=== PATIENT | female | born 1945 | race Caucasian/White ===

== ENCOUNTER 2016-09-29 15:38 | Outpatient (CLI) | payer MEDICARE, OTHER | END 2016-09-29 15:39 | disposition home or self-care (01) | DX: R60.0 Localized edema (principal) ==

== ENCOUNTER 2017-02-01 14:09 | Outpatient (CLI) | payer MEDICARE, OTHER ==
--- NOTE | 2017-02-02 10:28 | Mammography Report ---
BILATERAL DIGITAL DIAGNOSTIC MAMMOGRAM: 02/01/2017 Patient has no family history of breast cancer. Patient did have a personal history of breast cancer involving the right breast. Patient had a lumpectomy and then radiation. This was done in February 2013. TECHNIQUE: Craniocaudad and oblique lateral views of each breast were obtained with Hologic full field digital mammography. A mediolateral view of the left breast was done. Also, a coned-down compression craniocaudad and oblique lateral view of the left breast were done. COMPARISON: 12/22/2015, 11/29/2014, 10/22/2013, 07/27/2012. FINDINGS: Breasts are almost entirely composed of fat. Evidence of a prior lumpectomy is noted in the upper-outer quadrant of the right breast. Skin retraction and scarring is noted in association with multiple surgical clips. No significant cluster of calcification is seen in the breasts. The left breast shows a suggestion of an asymmetrical density in its upper-outer quadrant. This measures 1.3 cm. Finding was not present on preceding exam from 12/22/2015. It may have been present in a smaller form on prior mammograms dated 11/29/2014, 10/22/2013 and 07/27/2012. It is still noted on today's exam on the coned-down compression craniocaudad view. Finding may represent a benign summation shadow, but recommend a left breast ultrasound to exclude a mass in the upper-outer quadrant of the left breast at the 2 o'clock position, 5 cm superolateral to the left nipple. IMPRESSION: A 1.3 CM ASYMMETRICAL DENSITY IS NOTED AT THE 2 O'CLOCK POSITION OF THE LEFT BREAST. THIS FINDING APPEARS LARGER ON TODAY'S EXAM THAN PRECEDING EXAM. IT IS EQUIVOCAL FOR A SMALL MASS. RECOMMEND LEFT BREAST ULTRASOUND FOR FURTHER EVALUATION. PRIOR LUMPECTOMY IS ONCE AGAIN NOTED IN THE UPPER-OUTER QUADRANT OF THE RIGHT BREAST WITH SCARRING, MILD SKIN RETRACTION, AND SURGICAL CLIPS. BIRADS CATEGORY: 0, INCOMPLETE. NEEDS ADDITIONAL IMAGING EVALUATION. LEFT BREAST ULTRASOUND IS INDICATED. COMMENT: Patient was informed about the necessity to obtain a left breast ultrasound for further evaluation. Arrangements are presently being made to obtain this ultrasound. It is tentatively scheduled for 02/02/2017 at 3:15 p.m. JOB #: [id number] [id number] JOB #: [id number] SHAKEEL
== END 2017-02-01 14:10 | disposition home or self-care (01) ==
LOC: DI 14:09
PROVIDERS: ATTEND Internal Medicine Hematology & Oncology
DX: D05.11 Intraductal carcinoma in situ of right breast (principal)
CPT/HCPCS: 76642; 77066

== ENCOUNTER 2017-02-02 11:40 | Outpatient (CLI) | payer MEDICARE, OTHER ==
--- NOTE | 2017-02-02 17:38 | Ultrasound Report ---
REVISED: THIS REPORT WAS ORIGINALLY SIGNED ON 02/03/2017 @ 2045. REPORT MOVED TO CORRECT ACCOUNT ON 02/18/2017. LEFT BREAST ULTRASOUND: 02/02/2017 CLINICAL HISTORY: This is a 71-year-old female who had an asymmetrical density measuring 1.5 cm in the upper half of the left breast in the 2 o'clock position on recent screening mammogram. Patient had a prior right lumpectomy for breast cancer. TECHNIQUE: Real-time scanning was performed with education courses sales representative static images obtained. FINDINGS: Left breast ultrasound was done both by the technologist and Dr. Dumont. They demonstrate an isolated island of tissue in the upper outer quadrant of the left breast that varies from adjacent tissue. It measures 1.5 x 0.5 cm. It correlates in size and location to the area of concern on patient' s screening mammogram. The appearance of this finding is consistent with a focal island of glandular hyperplasia rather than a mass. Recommend, however, that this area be followed carefully with a repeat left breast ultrasound in 6 months to further confirm this benign etiology. This area lies 3 cm superolateral to the left nipple. IMPRESSION: A PROBABLE FOCAL AREA OF BENIGN GLANDULAR HYPERPLASIA IS NOTED IN THE 2 O'CLOCK POSITION OF THE LEFT BREAST 3 CM FROM THE LEFT NIPPLE. THIS FINDING CORRELATES IN SIZE AND LOCATION TO THE AREA OF CONCERN ON PATIENT'S RECENT SCREENING MAMMOGRAM. RECOMMEND IT BE FOLLOWED WITH A REPEAT LEFT BREAST ULTRASOUND IN 6 MONTHS TO FURTHER CONFIRM ITS BENIGN ETIOLOGY. BI-RADS 3. Probable benign finding. Short interval imaging study recommended. Patient should return for a 6-month followup left breast ultrasound. COMMENT: Patient was informed of the probably benign finding by Dr. Dumont today. She was encouraged to return for repeat left breast ultrasound in 6 months for further evaluation. JOB #: [id number] [id number] JOB #: [id number] SHAKEEL
== END 2017-02-02 11:41 | disposition home or self-care (01) ==
LOC: DI 11:40
PROVIDERS: ATTEND Internal Medicine Hematology & Oncology
DX: Z53.9 Procedure and treatment not carried out, unspecified reason (principal)
CPT/HCPCS: 76642

== ENCOUNTER 2017-08-18 12:35 | Outpatient (CLI) | payer MEDICARE, OTHER ==
--- NOTE | 2017-08-19 08:59 | Ultrasound Report ---
DATE OF SERVICE: 08/18/2017 LEFT BREAST ULTRASOUND: 08/18/2017 COMPARISON EXAM: Left breast ultrasound 02/02/2017 and mammograms 02/01/2017 and 12/22/2015. INDICATION: Followup BI-RADS 3 lesion of the left breast. Six month followup. TECHNIQUE: Sonographic evaluation of the left breast was performed. FINDINGS: Left breast 2 o'clock position, 3 cm from the nipple, in the same location as before, again seen is a hypoechoic area. The focus now shows more angular margins and more intense posterior shadowing, concerning findings. In correlation with previous examinations, the finding has become more conspicuous and more suspicious. IMPRESSION: BI-RADS category 4A. Suspicious abnormality. Biopsy should be considered. The patient will be scheduled for ultrasound-guided biopsy in our clinic at the earliest available opportunity. These findings were discussed in detail with the patient at the time of evaluation in our clinic 08/18/2017 at approximately 2 p.m. and she expressed understanding. TD: 08/18/2017 20:36 SHAKEEL
== END 2017-08-18 12:36 | disposition home or self-care (01) ==
LOC: DI 12:35
PROVIDERS: ATTEND Internal Medicine
DX: N63.21 Unspecified lump in the left breast, upper outer quadrant (principal)
CPT/HCPCS: 76642

== ENCOUNTER 2017-08-29 12:11 | Outpatient (CLI) | payer MEDICARE, OTHER ==
--- NOTE | 2017-08-29 16:35 | Ultrasound Report ---
DATE OF SERVICE: 08/29/2017 ULTRASOUND-GUIDED CORE NEEDLE BIOPSY LEFT BREAST: 08/29/2017 CLINICAL INDICATION: Hypoechoic focus with shadowing left breast 2 o'clock position 3 cm from the nipple. FOLLOWING: Informed consent was obtained. Using standard aseptic technique, both 1% buffered lidocaine and Sensorcaine were injected into the left breast for local anesthesia. A small leo was made in the skin with a #11 blade. A 12-gauge Celero vacuum assistive device was used to obtain four specimens. A Celero marker was placed into the biopsy cavity under ultrasound guidance. The patient was taken to a separate mammography machine and a 2-view digital mammogram was performed, documenting the marker in the expected location and no significant postbiopsy hematoma. The wound was dressed and ice applied. The patient was observed for approximately 15 minutes, then was discharged from [facility] following instructions on wound care and obtaining biopsy results. The tissue was sent for histologic analysis. IMPRESSION: ULTRASOUND-GUIDED BIOPSY OF THE LEFT BREAST. An addendum will be made to this report when the pathology is reviewed to establish concordance. TD: 08/29/2017 17:28
[2017-08-29] MEDS ORDERED: BUFFERED LIDOCAINE 10 ML SYRINGE IU ONE (16:40)
[2017-08-29] MEDS ORDERED: BUPIVACAINE 0.5% PF 10 ML VIAL IM ONE (16:40)
== END 2017-08-29 12:12 | disposition home or self-care (01) ==
LOC: DI 12:11
PROVIDERS: ATTEND Internal Medicine
DX: R92.8 Other abnormal and inconclusive findings on diagnostic imaging of breast (principal); N63.21 Unspecified lump in the left breast, upper outer quadrant
CPT/HCPCS: 19083; 88305

== ENCOUNTER 2017-09-23 07:06 | Outpatient (CLI) | payer MEDICARE, OTHER ==
[2017-09-23] MEDS ORDERED: IOPAMIDOL-300 50 ML VIAL ONE (08:03)
[2017-09-23] MEDS ORDERED: IOPAMIDOL-300 100 ML VIAL ONE (08:04)
[2017-09-23] MEDS ORDERED: IOPAMIDOL-300 50 ML VIAL PO ONE (09:41)
[2017-09-23] MEDS ORDERED: IOPAMIDOL-300 100 ML VIAL IVP ONE (09:42)
--- NOTE | 2017-09-23 13:31 | CT Report ---
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 TECHNIQUE: Axial CT images of the chest were obtained with 100 mL Isovue-[address] is available for comparison. FINDINGS: The heart and great vessels demonstrate mild atherosclerotic calcifications. No hilar or mediastinal lymphadenopathy is present. The lungs are clear. No effusion or pneumothorax is present. Osseous structures demonstrate degenerative changes. IMPRESSION: NORMAL CT OF THE CHEST WITH CONTRAST. NO EVIDENCE OF METASTATIC DISEASE. In accordance with CT protocol optimization, one or more of the following dose reduction techniques were utilized for this exam: automated exposure control, adjustment of mA and/or KV based on patient size, or use of iterative reconstructive technique. TD: 09/23/2017 13:27
--- NOTE | 2017-09-23 13:32 | CT Report ---
CT OF THE ABDOMEN AND PELVIS WITH CONTRAST: 09/23/2017 CLINICAL INDICATION: Breast cancer, leg edema. TECHNIQUE: Axial CT images of the abdomen and pelvis were obtained with 100 mL Isovue 300 intravenously as well as oral contrast. No previous CT is available for comparison. FINDINGS: ABDOMEN: The liver demonstrates diffuse decrease in attenuation, compatible with fatty infiltration. No focal lesion is seen. The spleen, pancreas, left kidney and adrenal glands are unremarkable. The right kidney demonstrates a 2 mm nonobstructing calculus in the upper pole. No hydronephrosis or hydroureter is seen. The gallbladder is not dilated. No bowel dilatation, free gas, or free fluid is present. No abdominal adenopathy is seen. PELVIS: Sigmoid diverticulosis is present, without CT evidence of diverticulitis. The uterus demonstrates a large amount of fluid and hyperdense material within the lumen, measuring up to 3 cm in thickness, suspicious for endometrial carcinoma. Correlation with endometrial biopsy is recommended. No free fluid or pelvic adenopathy is appreciated. The appendix is seen in the right lower quadrant, and is normal in caliber. Osseous structures demonstrate degenerative changes. IMPRESSION: HETEROGENEOUS MATERIAL WITHIN THE ENDOMETRIAL CANAL, SUSPICIOUS FOR ENDOMETRIAL CARCINOMA. CORRELATION WITH ENDOMETRIAL BIOPSY IS RECOMMENDED. NO EVIDENCE OF ADENOPATHY OR ASCITES. In accordance with CT protocol optimization, one or more of the following dose reduction techniques were utilized for this exam: automated exposure control, adjustment of mA and/or KV based on patient size, or use of iterative reconstructive technique. TD: 09/23/2017 13:31
== END 2017-09-23 07:07 | disposition home or self-care (01) ==
LOC: DI 07:06
PROVIDERS: ATTEND Physician Assistant Medical
DX: D05.90 Unspecified type of carcinoma in situ of unspecified breast (principal); R60.0 Localized edema; R93.8 Abnormal findings on diagnostic imaging of other specified body structures
CPT/HCPCS: 71260; 74177; Q9967

== ENCOUNTER 2017-10-05 09:24 | Day surgery (SDC) | payer MEDICARE, OTHER ==
--- NOTE | 2017-10-04 13:22 | PREOP HISTORY & PHYSICAL ---
ANTICIPATED DATE OF ADMISSION: 10/05/2017 IDENTIFICATION: A 72-year-old, G3, P-3-0-0-3. HISTORY OF PRESENT ILLNESS: The patient is a patient of Puja Byrnes, as well as Dr. Graciela Minaya. The patient, unfortunately, has breast cancer and was placed on tamoxifen. Due to swelling in her right leg, a CT of the abdomen and pelvis was obtained on 09/23/2017. This revealed an incidental finding of an endometrial thickness of 3 cm. There was no free fluid or pelvic adenopathy. The uterus measures approximately 13.1 x 6.2 cm with an endometrial lining thickness of 2.97 mm. The patient has denied any postmenopausal bleeding. She denies any pain in the uterine area. I saw the patient on 09/29/2017 and performed a Pap smear which came back as negative, as well as a screening for high risk human papillomavirus. Two large polyps were seen protruding from the external cervical os. These polyps were obtained and have come back as benign endocervical polyps. There was an attempt for an endometrial biopsy, but unfortunately there was insufficient evaluation for endometrium. There were fragments of endocervical mucosa with acute and chronic inflammation and reactive changes. I discussed with the patient my recommendation to do a definitive biopsy. I recommended to her that we proceed to an outpatient hysteroscopy, dilatation and curettage. The major risk for this procedure is uterine perforation. However, we should be able to get a definitive diagnosis with this procedure. I discussed with the patient my recommendations and its risks, benefits, alternatives, indications, expectations of surgery. After all of the patient's questions were answered to her satisfaction, she verbalized her desire to proceed with surgery. Consent forms have been signed. The patient currently is doing well. Denies any nausea, vomiting, fevers, chills, abdominal pain or vaginal bleeding. PAST MEDICAL HISTORY 1. Right breast cancer. 2. Diverticulosis, currently asymptomatic. 3. Obesity. 4. Three term spontaneous vaginal deliveries, with the largest baby weighing 7.19 pounds. She has had a girl, a boy, and a girl. PAST SURGICAL HISTORY: Right breast biopsy. ALLERGIES 1. TAPE. 2. LASIX, IN WHICH HER SKIN TEARS. MEDICATIONS: Tamoxifen 20 mg 1 tab p.o. daily. SOCIAL HISTORY: She denies any tobacco, alcohol or illicit drug use. 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 Her oldest child will be 48 years old. Her is Lex, who is a former [employer] and also worked as a insurance claims specialist. All 3 of her children are healthy. Her PCP, again, is Puja Byrnes PA-C; and medical oncologist is Graciela Minaya. PAST GYNECOLOGY HISTORY: She denies any abnormal Pap smears or sexually transmitted diseases. She was given hormone replacement when she went through menopause at age 47 or 48, but forgot to take them. FAMILY HISTORY: Paternal aunt had a questionable history of ovarian cancer. REVIEW OF SYSTEMS: Negative, unless otherwise stated. OBJECTIVE VITAL SIGNS: Weight is 205 pounds, height is 62 inches, BMI is 37.5, blood pressure 148/90. GENERAL: The patient is a well-developed, well-nourished, female, in no apparent distress. She is alert and oriented x3. The patient is very pleasant, easy to speak to. HEENT: Within normal limits. She does wear glasses. CARDIOVASCULAR: Regular. No murmurs, rubs. PULMONARY: Lungs are clear to auscultation bilaterally. ABDOMEN: Soft, nontender. No masses, rebound, rigidity, or guarding. ASSESSMENT 1. A 72-year-old G3, P-3-0-0-3. 2. Thickened endometrial lining. 3. Currently on year 4 of a 5 year endocrine prophylaxis of breast cancer. PLAN 1. Proceed to a scheduled hysteroscopy, dilatation and curettage on 10/05/2017. 2. Patient to take [id number] analgesics for pain. 3. Patient to see me in 2 weeks at [facility] for a postop visit, as well as discuss test results. cc: Puja Byrnes PA-C TD: 10/04/2017 11:15 [facility]ENTER[facility]
[~2017-10-05 09:24] MED LIST: miSOPROStol 200 MCG TABLET ONE
[2017-10-05] MEDS ORDERED: LACTATED RINGERS 1,000 ML IV ONE (09:54)
[2017-10-05] MEDS ORDERED: LIDOCAINE-MPF 2% 5 ML VIAL IM ONE (11:09)
[2017-10-05] MEDS ORDERED: ONDANSETRON 4 MG/2 ML VIAL IVP ONE (11:09)
[2017-10-05] MEDS ORDERED: PROPOFOL 1000 MG/100 ML IV ONE (11:09)
[2017-10-05] MEDS ORDERED: KETOROLAC 30 MG/ML VIAL IVP ONE (11:09)
[2017-10-05] MEDS ORDERED: SUCCINYLCHOLINE 200 MG/10 ML VIAL IVP ONE (11:09)
[2017-10-05] MEDS ORDERED: fentaNYL 100 MCG/2 ML VIAL IVP ONE (11:09)
--- NOTE | 2017-10-05 11:44 | OPERATIVE REPORT ---
Operative Report - Other Other Information/Narrative: Date of Operation: 10/05/2017 Surgeon: Claudine Cardenas DO FACOG Robotics Specialist: Kaiden Valderrama MD FACOG Liquefier: Dominique Bella CRNA Anesthesia: GET Pre-op Dx: 1. 72 yo 2. Endometrial hyperplasia 3. On year 4 of tamoxifen Post-op Dx: 1. 72 yo 2. Endometrial polyps and leiomyoma 3. On year 4 of tamoxifen Procedure: Hysteroscopy, dilation and curettage Findings: Endometrial polyps and leiomyomata seen. No dayanara cancer. Specimens: Endometrial cuttings EBL: 5 mL Complications: None Dictation: [id number]
[2017-10-05 13:14] VITALS: BP 152/86
--- NOTE | 2017-10-06 09:04 | OPERATIVE REPORT ---
DATE OF OPERATION: 10/05/2017 PREOPERATIVE DIAGNOSES 1. A 72-year-old G3, P-3-0-0-3. 2. Endometrial hyperplasia. 3. Year 4 of tamoxifen. POSTOPERATIVE DIAGNOSES 1. A 72-year-old G3, P-3-0-0-3. 2. Endometrial polyps and leiomyoma. 3. Year 4 of tamoxifen. PROCEDURE: Hysteroscopy, dilatation and curettage. SURGEON: Claudine Cardenas DO, FACOG FEDERAL MEDIATOR: Kaiden Valderrama MD, FACOG SPA MANAGER: Dominique Bella CRNA ANESTHESIA: General endotracheal tube. FINDINGS: Endometrial polyps and leiomyoma seen. No dayanara carcinoma. SPECIMENS: Endometrial cuttings. ESTIMATED BLOOD LOSS: 5 mL COMPLICATIONS: None. BRIEF HISTORY: This is a patient of JUNG Byrnes. Unfortunately, she has a history of breast cancer. She is currently in remission and has been on tamoxifen for endocrine prophylaxis since recurrence of breast cancer. She had a complaint of right leg swelling, and a CT of the abdomen and pelvis was performed. This found an incidental finding of a thickened endometrium of 3 cm. She was seen in the office, and a Pap smear returned as within normal limits and 2 polyps were excised. These polyps were found to be benign as well. I could not, however, obtain a satisfactory endometrial specimen. Therefore, I recommend to her that we proceed to a hysteroscopy, dilatation and curettage in the outpatient setting. Discussed with her my recommendations to proceed with a hysteroscopy, dilatation and curettage. I discussed with her the risk of hemorrhage, infection, and inadvertent laceration, cauterization, or most likely a uterine perforation. After all questions were answered to her satisfaction, she verbalized desire to proceed with surgery. Consent forms have been signed. OPERATION IN DETAIL: The patient was identified and consented, taken to the operating room where IV access are in place. She was then given sequential compression devices, which were placed on her lower extremities and turned on. Antibiotics were not indicated in this case. She was then attempted to be given LMA anesthesia, but this was not satisfactory. She was then converted to general endotracheal tube anesthesia as per Dominique Bella. A timeout was performed which correctly identified the patient, site of the procedure, and procedure itself. The patient was then prepped and draped in normal sterile fashion in the lithotomy position using Kd stirrups. Her bladder was drained prior to the procedure. She was given Cytotec 800 mcg in the Ambulatory Surgery area. Her cervix was identified and then dilated to a 6-Greek. A MyoSure hysteroscopic system was then placed into the uterus and normal saline solution was used as a distending medium. Upon visualization of the endometrium, there were significant amounts of polyps and fibroids. With the MyoSure LITE, the fibroids and polyps were then excised from the endometrium. At this point in time, the operation had been completed. All instruments were removed out of the vagina and hemostasis was noted. She was taken to the recovery room in stable condition. She will be discharged home later today after postoperative criteria are met. cc: MD Puja Arguello PA-C TD: 10/05/2017 12:13 MTDJovan
== END 2017-10-05 09:25 | disposition home or self-care (01) ==
LOC: SDS 09:24
PROVIDERS: ATTEND Obstetrics & Gynecology
PROC: 0UDB8ZX Extraction of Endometrium, Via Natural or Artificial Opening Endoscopic, Diagnostic (ICD-10-PCS; 2017-10-05)
PROC: 0UB98ZX Excision of Uterus, Via Natural or Artificial Opening Endoscopic, Diagnostic (ICD-10-PCS; principal; 2017-10-05 10:30)
DX: N85.00 Endometrial hyperplasia, unspecified (principal); Z85.3 Personal history of malignant neoplasm of breast; Z79.810 Long term (current) use of selective estrogen receptor modulators (SERMs)
CPT/HCPCS: 58558; A9270; J7120

== ENCOUNTER 2018-04-21 10:52 | Outpatient (CLI) | payer MEDICARE, OTHER ==
--- NOTE | 2018-04-21 13:18 | Mammography Report ---
Reason: R BREAST CANCER Procedure Date: 04/21/2018 Accession Number: [id number] / [id number] Procedure: ROBEL - Diagnostic Dig Bilat CPT Code: FULL RESULT: EXAM: Diagnostic Dig Bilat DATE: 04/21/2018 11:20 AM CLINICAL HISTORY: Personal history of right breast cancer. Ultrasound core biopsy left breast with benign results August 2017. TECHNIQUE: Bilateral digital CC and MLO projections with Scott symphysis. COMPARISON: 08/29/2017, 02/01/2017, 12/22/2015, 06/25/2015, 11/29/2014 and 05/06/2014. FINDINGS: There are scattered fibroglandular densities. Stable right breast upper outer quadrant architectural distortion and surgical clips postlumpectomy. Stable left breast ultrasound-guided core biopsy clip upper outer quadrant. No new dominant mass, architectural distortion, skin thickening, or suspicious clustered microcalcifications. IMPRESSION: Benign findings RECOMMENDATION: Follow-up bilateral mammography in 12 months. BIRADS CATEGORY 2: Benign findings STANDARD QUALIFYING STATEMENTS: 1. This examination was reviewed with the aid of Computer-Aided Detection (CAD). 2. A negative or benign imaging report should not delay biopsy if clinically suspicious findings are present. Consider surgical consultation if warrented. More than 5% of cancers are not identified by imaging. 3. Dense breasts may obscure an underlying neoplasm.
== END 2018-04-21 10:53 | disposition home or self-care (01) ==
LOC: DI 10:52
PROVIDERS: ATTEND Internal Medicine
DX: D05.11 Intraductal carcinoma in situ of right breast (principal)
CPT/HCPCS: 77066

== ENCOUNTER 2018-08-16 08:21 | Outpatient (CLI) | payer MEDICARE, OTHER ==
[2018-08-16 14:26] LABS: CHOL/HDL RATIO 4.2 (<4.4); CHOLESTEROL 229 mg/dL; HDL CHOLESTEROL 55 mg/dL; LDL CHOLESTEROL,CALCULATED 140 mg/dL; LDL/HDL RATIO 2.5 (<4.4); VLDL CHOLESTEROL 34 mg/dL
== END 2018-08-16 23:59 | disposition home or self-care (01) ==
LOC: LAB.WCP 08:21
PROVIDERS: ATTEND Physician Assistant Medical
DX: E78.5 Hyperlipidemia, unspecified (principal)
CPT/HCPCS: 36415; 80061; 83721

== ENCOUNTER 2018-11-03 13:26 | Outpatient (CLI) | payer MEDICARE, OTHER ==
--- NOTE | 2018-11-03 15:31 | CT Report ---
Reason: FLANK PAIN,RIGHT Procedure Date: 11/03/2018 Accession Number: [id number] / [id number] Procedure: CT - Abdomen/Pelvis WO CPT Code: FULL RESULT: EXAM: CT ABDOMEN AND PELVIS (CT KUB) EXAM DATE: 11/03/2018 01:39 PM. CLINICAL HISTORY: FLANK PAIN,RIGHT. COMPARISONS: ABDOMEN/PELVIS W/ 09/23/2017 8:57 AM. TECHNIQUE: Routine axial helical CT imaging was performed through the abdomen and pelvis without IV contrast. Reconstructions: Coronal and sagittal. In accordance with CT protocol optimization, one or more of the following dose reduction techniques were utilized for this exam: automated exposure control, adjustment of mA and/or KV based on patient size, or use of iterative reconstructive technique. FINDINGS: Lung Bases: Unremarkable. Right Kidney/Ureter: There is a 5 mm upper pole renal stone and a 2-3 mm lower pole renal stone. Stable mildly prominent extrarenal pelvis. No evidence of ureterolithiasis or bladder stone. 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 No appreciable left-sided nephrolithiasis. Stable parapelvic cyst formation. No evidence of ureterolithiasis. Other Solid Organs: Noncontrast images of the solid organs are grossly unremarkable. Gallbladder/Bile Ducts: Unremarkable. Peritoneal Cavity: There is colonic diverticulosis, but no CT evidence of diverticulitis. Appendix and small bowel appear normal. Pelvic Organs: No bladder stones or wall thickening. The uterus is borderline prominent in size for patient age measuring 10 x 5 x 5.5 cm diminished in size and volume compared to the prior when it measured 13 x 6 x 7 cm. Previously described heterogeneous material within the endometrial canal is no longer appreciated. Vasculature: Unremarkable. Other: None. IMPRESSION: 1. Nonobstructive right-sided nephrolithiasis as described. No hydronephrosis or ureterolithiasis. 2. Diverticulosis without CT evidence of diverticulitis. 3. Uterus borderline increased in size/volume for age, but decreased compared to the prior exam. RADIA
== END 2018-11-03 13:27 | disposition home or self-care (01) ==
LOC: DI 13:26
PROVIDERS: ATTEND Physician Assistant Medical
DX: R10.9 Unspecified abdominal pain (principal); N20.0 Calculus of kidney; K57.30 Diverticulosis of large intestine without perforation or abscess without bleeding
CPT/HCPCS: 74176

== ENCOUNTER 2019-02-02 01:19 | Outpatient (CLI) | payer MEDICARE, OTHER | END 2019-02-02 01:20 | disposition critical access hospital (66) | LOC: EMS 01:19 | PROVIDERS: ATTEND Surgery | DX: R10.10 Upper abdominal pain, unspecified (principal); R11.2 Nausea with vomiting, unspecified | CPT/HCPCS: A0425; A0427 ==

== ENCOUNTER 2019-02-02 01:39 | Emergency (ER) | payer MEDICARE, OTHER ==
--- NOTE | 2019-02-02 01:41 | ED Physician Documentation ---
PD HPI ABD PAIN - Stated complaint Stated Complaint: ABD PAIN - History obtained from History obtained from: Patient - History of Present Illness Timing - onset: Enter time (22:15) Timing - duration: Hours Timing - details: Abrupt onset Pain level now: 8 Quality: Pain Location: RUQ Radiation: Lower back Improved by: Meds (improved with fentanyl given en route (50micrograms with repeat dose, total of 100 micrograms)) Worsened by: Other (no exacerbating factors) Associated symptoms: Nausea, Vomiting. No: Fever, Diarrhea, Constipation Similar symptoms before: No diagnosis (similar but milder and self-limited episodes over the past few months) Recently seen: Not recently seen Review of Systems Constitutional: reports: Sweats. denies: Fever, Chills Cardiac: reports: Reviewed and negative Respiratory: reports: Reviewed and negative GI: reports: Abdominal Pain, Nausea, Vomiting. denies: Constipation, Diarrhea : denies: Dysuria, Frequency, Hematuria Musculoskeletal: reports: Back pain (abdominal pain radiating to back) PD PAST MEDICAL HISTORY - Past Medical History Past Medical History: Yes [employer]: Breast cancer - Past Surgical History Past Surgical History: No - Present Medications Home Medications: Ambulatory Orders Medication Instructions Recorded Confirmed Multivitamin [Multivitamins] 1 each PO DAILY 04/10/13 05/03/18 Tamoxifen 20 mg PO DAILY 07/18/13 05/03/18 Ondansetron Odt [Zofran] 4 mg TL Q6H PRN #10 tablet 02/02/19 Oxycodone HCl/Acetaminophen 1 - 2 each PO Q6H PRN #14 tablet 02/02/19 [Percocet 5-325 mg Tablet] - Allergies Allergies/Adverse Reactions: Allergies Allergy/AdvReac Type Severity Reaction Status Date / Time adhesive AdvReac Rash Verified 02/02/19 01:46 - Living Situation Living Situation: reports: With spouse/s.o. Living Arrangement: reports: At home PD ED PE NORMAL - Vitals Vital signs reviewed: Yes - General General: Alert and oriented X 3, Well developed/nourished, Other (obvious severe painful distress) - HEENT HEENT: Moist mucous membranes - Cardiac Cardiac: RRR, No murmur - Respiratory Respiratory: No respiratory distress, Clear bilaterally - Abdomen Abdomen: Soft, Non distended, Other (mild RUQ and epigastric tenderness without rebound or guarding) - Back Back: No CVA TTP - Derm Derm: Normal color, Warm and dry, No rash Results - Vitals Vitals: Vital Signs - 24 hr 02/02/19 02/02/19 02/02/19 01:42 01:51 02:10 Temperature 37.2 C Heart Rate 85 85 71 Respiratory 20 22 14 Rate Blood Pressure 124/53 L O2 Saturation 96 97 87 L 02/02/19 02/02/19 02/02/19 02:13 02:27 02:45 Temperature Heart Rate 80 66 86 Respiratory 15 14 15 Rate Blood Pressure 156/95 H 153/90 H O2 Saturation 96 99 98 02/02/19 02/02/19 02/02/19 03:12 04:30 04:35 Temperature Heart Rate 94 Respiratory 16 17 Rate Blood Pressure 138/69 H O2 Saturation 98 Oxygen O2 Source Room air Oxygen Flow Rate 2 - Labs Labs: Laboratory Tests 02/02/19 02/02/19 02/02/19 01:45 01:45 01:45 WBC 8.3 RBC 3.98 L Hgb 12.2 Hct 38.0 MCV 95.5 MCH 30.7 MCHC 32.1 RDW 13.2 Plt Count 209 MPV 10.0 Neut # (Auto) 6.1 Lymph # (Auto) 1.6 [place] # (Auto) 0.6 Eos # (Auto) 0.0 Baso # (Auto) 0.0 Absolute Nucleated RBC 0.00 Nucleated RBC % 0.0 Sodium 139 Potassium 4.2 Chloride 104 Carbon Dioxide 24 Anion Gap 11.0 BUN 20 Creatinine 1.1 H Estimated GFR (MDRD) 49 L Glucose 133 H Calcium 9.5 Total Bilirubin 0.6 AST 22 ALT 23 Alkaline Phosphatase 83 Troponin I < 0.04 Total Protein 6.8 Albumin 3.9 Globulin 2.9 Albumin/Globulin Ratio 1.3 Lipase 29 - Rads (name of study) RUQ US Radiology: Prelim report reviewed, See rad report PD MEDICAL DECISION MAKING - ED course Complexity details: reviewed results, re-evaluated patient, considered differential, d/w patient ED course: good pain relief after single dose of IV dilaudid and remained comfortable for remainder of ED stay. Departure - Departure Disposition: 01 Home, Self Care Clinical Impression: Biliary colic Condition: Good Health Concerns: abdominal pain Plan of Treatment: prescription analgesic, follow up with general surgery, return to emergency department if worse Care Goals: resolution of pain and prevention of further episodes Assessment: see diagnosis Instructions: ED Gallstone W Biliary Colic Follow-Up: Gerson Mckinnon MD [Provider Admit Priv/Credential] - (Call this morning to arrange for next available appointment) Prescriptions: Ondansetron Odt [Zofran] 4 mg TL Q6H PRN #10 tablet PRN Reason: Nausea / Vomiting Oxycodone HCl/Acetaminophen [Percocet 5-325 mg Tablet] 1 - 2 each PO Q6H PRN #14 tablet PRN Reason: pain Discharge Date/Time: 02/02/19 04:45
[2019-02-02] MEDS ORDERED: HYDROmorphone 1 MG/ML CARPUJECT IVP STA (01:53)
[2019-02-02] MEDS ORDERED: SODIUM CHLORIDE 0.9% 1,000 ML IV STA (01:57)
[2019-02-02 02:04] LABS: BASOPHILS % (AUTO) 0.4 %; EOSINOPHILS % (AUTO) 0.4 %; HGB - HEMOGLOBIN 12.2 g/dL (12.0-16.0); LYMPHOCYTES # (AUTO) 1.6 10^3/uL (1.5-3.5); LYMPHOCYTES % (AUTO) 19.3 %; MEAN CORPUSCULAR HEMOGLOBIN 30.7 pg (27.0-31.0); MEAN CORPUSCULAR HGB CONC 32.1 g/dL (32.0-36.0); MEAN CORPUSCULAR VOLUME 95.5 fL (81.0-99.0); MONOCYTES # (AUTO) 0.6 10^3/uL (0.0-1.0); MONOCYTES % (AUTO) 6.7 %; NEUTROPHILS # (AUTO) 6.1 10^3/uL (1.5-6.6); NEUTROPHILS % (AUTO) 72.8 %; PLT - PLATELET COUNT 209 10^3/uL (130-450); RED BLOOD COUNT 3.98 10^6/uL (4.20-5.40); RED CELL DISTRIBUTION WIDTH 13.2 % (12.0-15.0); WHITE BLOOD COUNT 8.3 x10^3/uL (4.8-10.8)
[2019-02-02 02:13] LABS: ALBUMIN 3.9 g/dL (3.2-5.5); ALBUMIN/GLOBULIN RATIO 1.3 (1.0-2.2); BILIRUBIN,TOTAL 0.6 mg/dL (0.2-1.0); CALCIUM 9.5 mg/dL (8.5-10.3); CREATININE 1.1 mg/dL (0.4-1.0); TOTAL PROTEIN 6.8 g/dL (6.7-8.2)
[2019-02-02 03:12] VITALS: BP 138/69
--- NOTE | 2019-02-02 03:46 | Ultrasound Report ---
Reason: abd. pain Procedure Date: 02/02/2019 Accession Number: [id number] / [id number] Procedure: US - Abdomen Limited CPT Code: FULL RESULT: EXAM: ABDOMEN ULTRASOUND LIMITED, RUQ EXAM DATE: 02/02/2019 03:10 AM. CLINICAL HISTORY: Abdominal pain. COMPARISON: ABDOMEN/PELVIS W/O 11/03/2018 1:35 PM. TECHNIQUE: Real-time scanning was performed with static images obtained. FINDINGS: Liver: Echotexture within normal limits without suspicious abnormality seen. Main portal vein flow: Hepatopetal. Gallbladder: Gallstone lodged in the gallbladder neck with borderline wall thickening but without pericholecystic fluid. Patient reportedly medicated. Biliary System: CBD measures 4 mm. No intrahepatic or extrahepatic ductal dilatation. Other: No right hydronephrosis with small extrarenal pelvis noted. Patient has a small nonobstructing right renal stone. IMPRESSION: Cholelithiasis and borderline wall thickening but without definite acute cholecystitis. If clinical situation remains equivocal, HIDA scan can be considered. RADIA
[2019-02-02] MEDS ORDERED: oxyCODONE/ACET 5/325 Prepack 4 PO STA (04:14)
== END 2019-02-02 04:45 | disposition home or self-care (01) ==
LOC: EDUNIT# → ED 01:39
DX: K80.20 Calculus of gallbladder without cholecystitis without obstruction (principal)
CPT/HCPCS: 36415; 76705; 80053; 83690; 84484; 85025; 93005; 96361; 96374; 99284; J1170

== ENCOUNTER 2019-02-16 11:07 | Day surgery (SDC) | payer MEDICARE, OTHER ==
[~2019-02-16 11:07] MED LIST changes: +BUPIVACAINE 0.5% PF 10 ML VIAL ONE; +BUPIVACAINE 0.5% PF 30 ML VIAL INFIL ONE; +CEFAZOLIN SODIUM IN 0.9 % NACL 2 GM/100 ML BAG IV ONE; -miSOPROStol 200 MCG TABLET ONE
--- NOTE | 2019-02-16 11:24 | ANESTHESIA ---
Pre-Anesthesia VS, & Labs - Diagnosis syptomatic cholecystitis - Procedure laparoscopic cholecystectomy Vital Signs: Temp Pulse Resp BP Pulse Ox 36.5 C 82 18 170/98 H 98 02/16/19 11:10 02/16/19 11:10 02/16/19 11:10 02/16/19 11:10 02/16/19 11:10 Height 5 ft 2 in Weight (kg) 92.1 kg Body Mass Index 39.2 - NPO >8 hours - Is Patient ?: Not Applicable Home Medications and Allergies Home Medications: Ambulatory Orders Ibuprofen [Motrin] 400 mg PO Q6H PRN 02/08/19 Ibuprofen [Motrin] 400 mg PO Q6H PRN 02/08/19 Allergies/Adverse Reactions: Allergies Allergy/AdvReac Type Severity Reaction Status Date / Time adhesive AdvReac skin tears Verified 02/08/19 10:45 Anes History & Medical History - Anesthetic History Anesthesia Complications: reports: No previous complications - Medical History Cardiovascular: reports: None Pulmonary: reports: Pneumonia Gastrointestinal: reports: Cholelithiasis Urinary: reports: Incontinence, Kidney stones Neuro: reports: None Musculoskeletal: reports: Osteoarthritis Endocrine/Autoimmune: reports: None Blood Disorders: reports: None Skin: reports: None Smoking Status: Never smoker - Surgical History General: Colonoscopy Gynecologic: Dilation and currettage Exam General: Alert Dental: WNL Mouth Opening: Greater than 4 Fingerbreadths Mallampati classification: II Thyromental Distance: greater than 6 cm Respiratory: Lungs clear Cardiovascular: Regular rate, Normal S1, Normal S2 Plan Anesthesia Type: General Consent for Procedure(s) Verified and Reviewed: Yes Code Status: Attempt Resuscitation ASA classification: 2-Mild systemic disease Is this case an emergency?: No
[2019-02-16] MEDS ORDERED: LACTATED RINGERS 1,000 ML IV ONE ×3 (11:36→13:09)
[2019-02-16] MEDS ORDERED: BUPIVACAINE 0.5% PF 30 ML VIAL INFIL ONE (12:12)
[2019-02-16] MEDS ORDERED: ROCURONIUM 50 MG/5 ML VIAL IVP ONE (12:45)
[2019-02-16] MEDS ORDERED: fentaNYL 100 MCG/2 ML VIAL IVP ONE (12:45)
[2019-02-16] MEDS ORDERED: NEOSTIGMINE 1 MG/1 ML 10 ML MDV IVP ONE (12:45)
[2019-02-16] MEDS ORDERED: GLUCAGON 1 MG/ML VIAL IM ONE (12:45)
[2019-02-16] MEDS ORDERED: KETOROLAC 30 MG/ML VIAL IVP ONE (12:45)
[2019-02-16] MEDS ORDERED: PROPOFOL 200 MG/20 ML VIAL IVP ONE (12:45)
[2019-02-16] MEDS ORDERED: ACETAMINOPHEN 1,000 MG/100 ML 100 ML IV ONE (12:45)
[2019-02-16] MEDS ORDERED: LIDOCAINE-MPF 2% 5 ML VIAL IM ONE (12:45)
[2019-02-16] MEDS ORDERED: PHENYLEPHRINE 50 MG/5 ML VIAL IV ONE (12:45)
[2019-02-16] MEDS ORDERED: DEXAMETHASONE 4 MG/ML VIAL IVP ONE (12:45)
[2019-02-16] MEDS ORDERED: MIDAZOLAM 2 MG/2 ML VIAL IVP ONE (12:45)
[2019-02-16] MEDS ORDERED: HYDROcod/ACETAM 5/325 MG TABLET PO PRN (13:19)
[2019-02-16] MEDS ORDERED: ONDANSETRON 4 MG/2 ML VIAL IVP PRN (13:19)
[2019-02-16] MEDS: fentaNYL 100 MCG/2 ML VIAL ONE ×2 (13:20→13:29)
--- NOTE | 2019-02-16 13:41 | OPERATIVE REPORT ---
Operative Report - General Procedure Date: 02/16/19 Planned Procedure: Laparoscopic cholecystectomy, possible open cholecystectomy, possible intraoperative cholangiogram, possible common bile duct exploration Pre-Op Diagnosis: Symptomatic cholelithiasis Procedure Performed: Laparoscopic cholecystectomy Post Op Diagnosis: Same - Procedure Note Primary Surgeon: Gerson Mckinnon MD Anesthesia Provider: Dale Cintron CRNA Anesthesia Technique: General ET tube, Local (30 mL of half percent Marcaine) IV Fluids (mL): 1,000 Estimated Blood Loss (mL): 50 Drain/Tube Type: Other (None) Complications: None. - Other Other Information/Narrative: OPERATIVE DESCRIPTION/REPORT: After verbal and written informed consent was obtained detailing the risks of infection, bleeding requiring transfusion with its risks, nerve injury, and , as well as the possibility of a colostomy, and after I met with the patient confirming the surgery, the patient was brought to the operative suite and placed supine on the operating table. Great care was taken to avoid pressure points to prevent pressure necrosis or nerve injury. Monitoring devices were applied along with TEDs and pneumatic compressive stockings (to prevent DVT). The patient received preoperative antibiotics for surgical prophylaxis. Dale Cintron CRNA sedated and anethetized the patient for the entire procedure. The patient was prepped and draped in the usual sterile manner. A "time in" then confirmed that the patient was identified with 3 identifiers (name, date and medical record number), the history and physical was in the chart, the signed consent confirming the procedure was in the chart, the patient was in the correct position, the aforementioned prophylactic measures were in place or given, we had the correct personnel and equipment to complete the procedure and that anesthesia, surgery and nursing were given an opportunity to express any concerns. With the agreement of everyone in the room, we proceeded with the operation. The initial incision was at the umbilicus and dissection to the linea alba was completed using blunt dissection. The linea alba was grasped with a Katheryn and incised. In a similar manner the peritoneum was grasped and incised using Metzenbaum scissors. In this location, a 12 mm blunt tipped, balloon tipped port was placed and the balloon was inflated to keep the port in position. The abdominal cavity was insufflated with carbon dioxide to steady-state pressure of 15 mmHg. Three additional 5 mm ports were placed in standard location for laparoscopic cholecystectomy (subxiphoid and 2 right subcostal) under direct vision of the 30 degree laparoscope and without incident. The patient was then placed in reverse Trendelenburg position and was rotated slightly to their left. The gallbladder fundus was grasped with an atraumatic grasper. Multiple adhesions had to be taken down by blunt and sharp dissection along with electrocautery. Eventually, we identified the infundibulum, and this was then grasped and retracted inferior and laterally. Dissection was then begun in the angle of Calot. The cystic duct and (slightly medially and posteriorly) cystic artery were clearly identified. The critical view was obtained. Two clips proximally and one clip distally were used to control both the cystic duct and cystic artery. The clips were carefully placed to avoid occluding the juncture with the common bile duct. Both the cystic duct and then the cystic artery were then transected with laparoscopic ashu. There was a small branch of the cystic artery that bled and required electrocautery for control. The gallbladder was then removed from its fossa in a retrograde fashion using electrocautery. With the 30 degree 5 mm scope in the subxiphoid position, the gallbladder was placed in an EndoCatch bag to be extracted through the 12 mm port site. I irrigated the right upper quadrant with a liter of warm sterile saline, and the area was aspirated dry. I inspected the gallbladder fossa and there was no bleeding or bile leak. Clips on the cystic duct and cystic artery appeared to be secure. I briefly visually explored the abdomen. There was no other evidence of overt pathology. I injected the port sites at the peritoneal, fascial, and skin levels under direct vision with 0.5% Marcaine. All ports and the EndoCatch containing the gallbladder were removed. Following gallbladder removal, the remaining carbon dioxide was expelled from the abdomen. The fascia at the umbilicus was reapproximated using a [id number] 0 Vicryl suture. The skin at each port site was approximated using a subcuticular 4-0 Monocryl. The surgical count of instruments, needles and sponges was reported as correct twice. Dermabond was applied. The patient was then awakened from anesthesia, extubated, and having tolerated the procedure well, was transported to the recovery room. No complications were encountered. A "time out" confirmed the operation performed, the fluids given, the estimated blood loss and anesthesia, surgery and nursing were given an opportunity to express any concerns. Dragon disclaimer: This document was created in part using voice recognition technology. Because of the inherent limitations of the system ([employer] Dict[employer] user manual states that the licensee understands that speech recognition is a statistical process and that recognition errors are inherent in the process), occasional same sounding word substitutions and grammatical errors do occur and persist despite proofreading. Please read this document for context.
[2019-02-16] MEDS: HYDROmorphone 0.5 MG/0.5 ML SYRINGE IVP PRN ×2 (13:46→13:52)
[2019-02-16] MEDS ORDERED: HYDROcod/ACETAM 5/325 MG TABLET ONE (14:23)
[2019-02-16 15:33] VITALS: BP 132/84
== END 2019-02-16 11:08 | disposition home or self-care (01) ==
LOC: SDS 11:07
PROVIDERS: ATTEND Surgery
PROC: 0FT44ZZ Resection of Gallbladder, Percutaneous Endoscopic Approach (ICD-10-PCS; principal; 2019-02-16 12:45)
DX: K80.10 Calculus of gallbladder with chronic cholecystitis without obstruction (principal); E66.9 Obesity, unspecified; Z68.38 Body mass index [BMI] 38.0-38.9, adult
CPT/HCPCS: 47562; A9270; J0131; J0690; J1170; J7120

== ENCOUNTER 2019-03-20 13:21 | Outpatient (CLI) | payer MEDICARE, OTHER | END 2019-03-20 23:59 | disposition home or self-care (01) | LOC: LAB.R 13:21 | PROVIDERS: ATTEND Physician Assistant Medical | DX: N39.0 Urinary tract infection, site not specified (principal) | CPT/HCPCS: 87077; 87086; 87181 ==

== ENCOUNTER 2019-07-03 13:31 | Outpatient (CLI) | payer MEDICARE, OTHER ==
--- NOTE | 2019-07-04 13:28 | XRAY Report ---
Reason: RIGHT RIB PAIN Procedure Date: 07/03/2019 Accession Number: [id number] / [id number] Procedure: WCP - Ribs w/PA Chest RT CPT Code: Final Report FULL RESULT: EXAM: EXAM TYPE EXAM DATE: 07/03/2019 02:12 PM HISTORY: RIGHT RIB PAIN. COMPARISON: None. TECHNIQUE: AP and oblique views of the right ribs and single PA view of the chest, three views total FINDINGS: No rib fracture or other significant rib lesion. Mildly limited by under expansion. Probable mild bibasilar subsegmental atelectasis. No dayanara edema or pleural effusion. No pneumothorax. Normal heart size. IMPRESSION: No rib abnormality. No acute disease of the chest. Underexpanded.
== END 2019-07-03 23:59 | disposition home or self-care (01) ==
LOC: DI.WCP 13:31
PROVIDERS: ATTEND Physician Assistant Medical
DX: R07.81 Pleurodynia (principal)

== ENCOUNTER 2019-07-16 10:34 | Outpatient (CLI) | payer MEDICARE, OTHER ==
[2019-07-16] MEDS ORDERED: IOVERSOL 320 100 ML VIAL IVP ONE ×2 (10:49→12:23)
[2019-07-16 11:33] LABS: CREATININE 0.8 mg/dL (0.4-1.0)
--- NOTE | 2019-07-16 15:15 | CT Report ---
Reason: RIGHT FLANK PAIN, HX RENAL LITHIASIS, HX BREAST CA Procedure Date: 07/16/2019 Accession Number: [id number] / [id number] Procedure: CT - Abdomen/Pelvis W CPT Code: Final Report FULL RESULT: EXAM: CT ABDOMEN AND PELVIS EXAM DATE: 07/16/2019 11:49 AM. CLINICAL HISTORY: Right flank pain, history of renal lithiasis, history of breast cancer. COMPARISONS: ABDOMEN/PELVIS W/O 11/03/2018 1:35 PM ABDOMEN/PELVIS W/ 09/23/2017 8:57 AM. TECHNIQUE: Routine helical CT imaging was performed through the abdomen and pelvis. IV contrast: Optiray 320 100 mL. Enteric contrast: No. Reconstructions: Coronal and sagittal. In accordance with CT protocol optimization, one or more of the following dose reduction techniques were utilized for this exam: automated exposure control, adjustment of mA and/or KV based on patient size, or use of iterative reconstructive technique. FINDINGS: Lung Bases: Unremarkable. Liver: Diffusely hypodense consistent with fatty infiltration. No solid or cystic liver masses. Gallbladder/Bile Ducts: Surgically absent gallbladder. No intra-nor extrahepatic ductal dilation. Spleen: Stable. Pancreas: Stable. Adrenal Glands: Stable. Kidneys: RIGHT: Stable nonobstructive 5 mm upper pole renal stone. The previously identified lower pole renal stone is no longer visualized. Stable extrarenal pelvis. No hydronephrosis or hydroureter. LEFT: Stable fat-containing upper pole mass spanning at least 3 cm. Stable extrarenal pelvis. No hydronephrosis or hydroureter.. Peritoneal Cavity/Bowel: Stable. Few scattered diverticula without evidence for active diverticulitis. There are no dilated segments of small or large bowel. The appendix is well visualized and normal. A few shotty mesenteric and retroperitoneal lymph nodes are incidental. No dayanara adenopathy. No free fluid. Pelvic Organs: The bladder and visualized pelvic organs are within normal limits. Vasculature: No aneurysms or other significant abnormality. Bones: Degenerative changes again noted in the thoracolumbar spine. No lytic or blastic destructive lesions. IMPRESSION: 1. Nonobstructive right upper pole renal stone, stable. The previously described right lower pole renal stone no longer visualized. No hydronephrosis or hydroureter. 3. Post cholecystectomy. 4. Fatty liver. 5. Diverticulosis without evidence for active diverticulitis. RADIA
== END 2019-07-16 10:35 | disposition home or self-care (01) ==
LOC: DI 10:34
PROVIDERS: ATTEND Physician Assistant Medical
DX: N20.0 Calculus of kidney (principal); K76.0 Fatty (change of) liver, not elsewhere classified; K57.30 Diverticulosis of large intestine without perforation or abscess without bleeding; Z90.49 Acquired absence of other specified parts of digestive tract; R10.9 Unspecified abdominal pain
CPT/HCPCS: 36415; 74177; 82565; Q9967

== ENCOUNTER 2019-08-30 08:00 | Outpatient (CLI) | payer MEDICARE, OTHER ==
[2019-08-30 12:34] LABS: ALBUMIN 3.8 g/dL (3.2-5.5); ALBUMIN/GLOBULIN RATIO 1.3 (1.0-2.2); ALKALINE PHOSPHATASE 73 IU/L (42-121); ALT ALANINE AMINOTRANSFERASE 21 IU/L (10-60); AST ASPARTATE AMINOTRANSFERASE 19 IU/L (10-42); BILIRUBIN,TOTAL 0.8 mg/dL (0.2-1.0); BUN - BLOOD UREA NITROGEN 20 mg/dL (6-20); CALCIUM 9.1 mg/dL (8.5-10.3); CARBON DIOXIDE - CO2 26 mmol/L (21-32); CHLORIDE 107 mmol/L (101-111); CHOL/HDL RATIO 4.4 (<4.4); CHOLESTEROL 218 mg/dL; CREATININE 0.9 mg/dL (0.4-1.0); GFR - MDRD 61 (>89); GLUCOSE 90 mg/dL (70-100); HDL CHOLESTEROL 49 mg/dL; LDL CHOLESTEROL,CALCULATED 145 mg/dL; SODIUM 139 mmol/L (135-145); TOTAL PROTEIN 6.8 g/dL (6.7-8.2); VLDL CHOLESTEROL 24 mg/dL
[2019-08-30 12:54] LABS: BASOPHILS # (AUTO) 0.1 10^3/uL (0.0-0.1); BASOPHILS % (AUTO) 0.9 %; EOSINOPHILS # (AUTO) 0.1 10^3/uL (0.0-0.7); EOSINOPHILS % (AUTO) 1.9 %; HGB - HEMOGLOBIN 12.7 g/dL (12.0-16.0); LYMPHOCYTES # (AUTO) 2.2 10^3/uL (1.5-3.5); LYMPHOCYTES % (AUTO) 38.4 %; MEAN CORPUSCULAR HGB CONC 31.4 g/dL (32.0-36.0); MEAN CORPUSCULAR VOLUME 95.7 fL (81.0-99.0); MEAN PLATELET VOLUME 11.2 fL (7.9-10.8); MONOCYTES # (AUTO) 0.5 10^3/uL (0.0-1.0); MONOCYTES % (AUTO) 8.9 %; NEUTROPHILS # (AUTO) 2.8 10^3/uL (1.5-6.6); NEUTROPHILS % (AUTO) 49.7 %; PLT - PLATELET COUNT 221 10^3/uL (130-450); RED BLOOD COUNT 4.23 10^6/uL (4.20-5.40); RED CELL DISTRIBUTION WIDTH 13.2 % (12.0-15.0); WHITE BLOOD COUNT 5.7 x10^3/uL (4.8-10.8)
== END 2019-08-30 23:59 | disposition home or self-care (01) ==
LOC: LAB.WCP 08:00
PROVIDERS: ATTEND Physician Assistant Medical
DX: E78.5 Hyperlipidemia, unspecified (principal); R03.0 Elevated blood-pressure reading, without diagnosis of hypertension; F41.9 Anxiety disorder, unspecified; K21.9 Gastro-esophageal reflux disease without esophagitis
CPT/HCPCS: 36415; 80053; 80061; 83721; 84443; 85025

== ENCOUNTER 2020-04-14 14:15 | Outpatient (CLI) | payer MEDICARE, OTHER ==
--- NOTE | 2020-04-14 16:25 | Ultrasound Report ---
PROCEDURE: Duplex Ext Veins Right INDICATIONS: Leg swelling and edema TECHNIQUE: Real-time imaging, as well as color and pulse Doppler interrogation, were performed of the lower extr emity deep veins from the inguinal ligament to the popliteal fossa. COMPARISON: None. FINDINGS: The deep veins are normally compressible, and free of intraluminal thrombus. Color and pu lse Doppler demonstrate normal phasic intraluminal flow. There is normal augmentation response to di stal compression maneuver. IMPRESSION: No sonographic evidence of deep venous thrombosis in the right lower extremity. Reviewed by: Leandro Live MD on 04/14/2020 4:24 PM PDT Approved by: Leandro Live MD on 04/14/2020 4:24 PM PDT Station ID: [id number]
== END 2020-04-14 14:16 | disposition home or self-care (01) ==
LOC: DI 14:15
PROVIDERS: ATTEND Physician Assistant Medical
DX: R60.0 Localized edema (principal)

== ENCOUNTER 2020-04-22 10:37 | Outpatient (CLI) | payer MEDICARE, OTHER ==
[2020-04-22] MEDS ORDERED: IOVERSOL 320 100 ML VIAL IVP ONE ×2 (11:00→13:05)
[2020-04-22] MEDS ORDERED: IOVERSOL 320 50 ML VIAL ONE (11:00)
[2020-04-22 11:34] LABS: CALCIUM 9.2 mg/dL (8.5-10.3); CREATININE 0.9 mg/dL (0.4-1.0)
[2020-04-22] MEDS ORDERED: IOVERSOL 320 50 ML VIAL PO ONE (13:05)
--- NOTE | 2020-04-22 20:17 | CT Report ---
PROCEDURE: Abdomen/Pelvis W INDICATIONS: EDEMA LEG CONTRAST: IV CONTRAST: Optiray 320 ml: 100 PO CONTRAST: Optiray 320 ml50 TECHNIQUE: After the administration of weight appropriate dose of intravenous contrast, 5 mm thick sections acqu ired from the diaphragms to the symphysis. 5 mm thick coronal and sagittal reformats were acquired. For radiation dose reduction, the following was used: automated exposure control, adjustment of mA and/or kV according to patient size. COMPARISON: 07/16/2019, 11/03/2018, and 09/23/2017 FINDINGS: Image quality: Excellent. ABDOMEN: Lung bases: Lung bases are clear. Heart size is normal. Solid organs: Liver and spleen are normal in size and enhancement. Gallbladder is surgically absent Biliary system is non dilated. Pancreas enhances normally. No adrenal nodules. Kidneys demonstra te normal size and enhancement, without hydronephrosis. Stable 3.0 cm fat-containing mass involving t he upper pole of the medial left kidney. Stable punctate 3 mm nonobstructing right nephrolith. Peritoneum and bowel: Bowel loops demonstrate normal wall thickness and caliber. Scattered colonic d iverticula without acute diverticulitis. No free fluid or air. Normal appendix. Nodes and vessels: No retroperitoneal or mesenteric adenopathy by size criteria. Aorta and inferior vena cava are normal in size. Visualized iliac vasculature appear patent. No suspicious mass or dafne nopathy identified along the iliac vessels, aorta, IVC. Miscellaneous: No ventral hernias. PELVIS: Genitourinary: Bladder wall thickness is normal. Miscellaneous: No inguinal hernias or adenopathy. Bones: No suspicious bony lesions. No acute vertebral body compression fractures. Multilevel spond ylitic changes throughout the imaged spine. IMPRESSION: 1. CT abdomen and pelvis without acute abnormalities. No findings identified to explain patient's his tory of left leg swelling. 2. Colonic diverticulosis without acute diverticulitis. 3. Stable punctate nonobstructing right nephrolith. 4. Stable 3.0 cm fat-containing mass involving the upper pole of the medial left kidney. 5. Status post cholecystectomy. Reviewed by: Iam Mcnair MD on 04/22/2020 8:15 PM PDT Approved by: Iam Mcnair MD on 04/22/2020 8:15 PM PDT Station ID: [id number]
== END 2020-04-22 10:38 | disposition home or self-care (01) ==
LOC: DI 10:37
PROVIDERS: ATTEND Physician Assistant Medical
DX: R60.0 Localized edema (principal); K57.30 Diverticulosis of large intestine without perforation or abscess without bleeding; N20.0 Calculus of kidney; N28.89 Other specified disorders of kidney and ureter; Z90.49 Acquired absence of other specified parts of digestive tract
CPT/HCPCS: 36415; 74177; 80048; Q9967

== ENCOUNTER 2020-05-13 14:58 | Outpatient (CLI) | payer MEDICARE, OTHER ==
--- NOTE | 2020-05-17 04:59 | Ultrasound Report ---
PROCEDURE: Duplex Ext Veins Right INDICATIONS: RLE EDEMA TECHNIQUE: Real-time imaging, as well as color and pulse Doppler interrogation, were performed of the lower extr emity deep veins from the inguinal ligament to the popliteal fossa. COMPARISON: Venous ultrasound 05/13/2020 reviewed. FINDINGS: The deep veins are normally compressible, and free of intraluminal thrombus. Color and pu lse Doppler demonstrate normal phasic intraluminal flow. There is normal augmentation response to di stal compression maneuver. Within the right distal thigh a lobulated masslike structure that appears solid was found. A bilobed or 2 discrete adjacent masses appear present, measuring approximately 4 x 6.4 x 2.1 cm more laterally and 4.3 x 2.4 x 2.4 cm more medially. These are located within the soft tissues of the distal thigh rather than superficially. IMPRESSION: No DVT found. Masslike structures are identified within the distal thigh region of uncer tain etiology and clinical significance. Neoplasm is the dominant concern. Contrast enhanced MR scann ing likely is warranted at this time. Sarcoma could explain this appearance. Reviewed by: Kunal Hawthorne MD on 05/16/2020 2:14 PM PDT Approved by: Kunal Hawthorne MD on 05/16/2020 2:14 PM PDT Station ID: [id number]
== END 2020-05-13 14:59 | disposition home or self-care (01) ==
LOC: DI 14:58
PROVIDERS: ATTEND Physician Assistant Medical
DX: R22.41 Localized swelling, mass and lump, right lower limb (principal)

== ENCOUNTER 2020-05-14 08:00 | Outpatient (CLI) | payer MEDICARE, OTHER | END 2020-05-14 23:59 | disposition home or self-care (01) | LOC: LAB.WCP 08:00 | PROVIDERS: ATTEND Physician Assistant Medical | DX: R60.0 Localized edema (principal) | CPT/HCPCS: 36415; 83880; 85379 ==

== ENCOUNTER 2020-05-15 12:55 | Outpatient (CLI) | payer MEDICARE, OTHER ==
[2020-05-15] MEDS ORDERED: IOVERSOL 320 100 ML VIAL IVP ONE ×2 (13:20→13:48)
--- NOTE | 2020-05-15 14:07 | CT Report ---
PROCEDURE: ANGIO CHEST W/WO INDICATIONS: LEG EDEMA CONTRAST: IV CONTRAST: Isovue 370 ml: 80 PO CONTRAST: *NO PO CONTRAST TECHNIQUE: After the administration of intravenous contrast, 2 mm thick sections acquired from the pulmonary api faby to the posterior costophrenic angles. 3-dimensional maximum intensity projection (MIP) coronal a nd sagittal reformats were then acquired through the thorax. For radiation dose reduction, the follow ing was used: automated exposure control, adjustment of mA and/or kV according to patient size. COMPARISON: FINDINGS: Image quality: Excellent. Pulmonary arteries: Pulmonary arteries are normal in size, and demonstrate no left-sided intralumina l filling defects to suggest central pulmonary embolism within the left hemithorax. However, there i s a definite central pulmonary embolus involving the right lower lobe pulmonary artery, with a small saddle embolus component, and a limb of this thrombus extends into the posterior medial basilar pulmo nary artery seen on CT series 5 image 58. Additionally, an occlusive embolus is present within a smal l peripheral branch at the posterior basilar pulmonary artery best seen on CT series 5 image 67. Lungs and pleura: Lungs are clear. No pleural effusions or pneumothorax. Central and peripheral ai rways are patent. Mediastinum: Heart size is normal, without pericardial effusion. No mediastinal or hilar adenopathy . Thoracic aorta is normal in caliber and enhancement. Esophagus is normal in caliber, without hiat al hernia. Bones and chest wall: No suspicious bony lesions. Ribs and thoracic spine appear intact throughout. The thyroid is normal. No axillary or supraclavicular adenopathy. Abdomen: Visualized upper abdominal solid organs appear normal in the early arterial phase of enhanc ement. IMPRESSION: Right-sided posterior lung base pulmonary artery emboli are found at 2 separate sites, one of which i s nonocclusive and the second is occlusive. Reviewed by: Kunal Hawthorne MD on 05/15/2020 2:05 PM PDT Approved by: Kunal Hawthorne MD on 05/15/2020 2:05 PM PDT Station ID: [id number]
== END 2020-05-15 12:56 | disposition home or self-care (01) ==
LOC: DI 12:55
PROVIDERS: ATTEND Physician Assistant Medical
DX: I26.99 Other pulmonary embolism without acute cor pulmonale (principal)
CPT/HCPCS: 71275; Q9967

== ENCOUNTER 2020-05-19 08:00 | Outpatient (CLI) | payer MEDICARE, OTHER ==
[2020-05-22 14:50] LABS: PROTEIN C ACTIVITY 183 % normal (70-180)
== END 2020-05-19 23:59 | disposition home or self-care (01) ==
LOC: LAB.WCP 08:00
PROVIDERS: ATTEND Physician Assistant Medical
DX: I26.99 Other pulmonary embolism without acute cor pulmonale (principal)
CPT/HCPCS: 36415; 81241; 81599; 85210; 85300; 85303; 85305; 85306; 85613

== ENCOUNTER 2020-05-24 10:10 | Outpatient (CLI) | payer MEDICARE, OTHER ==
[2020-05-24] MEDS ORDERED: GADOBUTROL 7.5 MMOL/7.5 ML VIAL ONE (11:15)
[2020-05-24] MEDS ORDERED: GADOBUTROL 7.5 MMOL/7.5 ML VIAL IVP ONE (11:58)
--- NOTE | 2020-05-25 09:12 | MRI Report ---
PROCEDURE: Femur/Thigh RT W/WO INDICATIONS: LEG EDEMA, MASS IN DISTAL THIGH TECHNIQUE: PROCEDURE: Femur/Thigh RT W/WO INDICATIONS: LEG EDEMA, MASS IN DISTAL THIGH CONTRAST: IV CONTRAST: Gadavist ml: 7.5 TECHNIQUE: Noncontrast coronal T1 spin echo and STIR, sagittal T1 spin echo with fat saturation and STIR, axial T1 spin echo and T2 fast spin echo with fat saturation. After the administration of contrast, axial/ sagittal/coronal T1 spin echo with fat saturation through the . COMPARISON: None. FINDINGS: FINDINGS: Image quality: Excellent. Bones: The visualized bone marrow demonstrates normal signal on all sequences. The cortex demonstrat es normal thickness and signal. Soft tissues: Visualized portions of the left lower extremity have a normal appearance. There is a la rge lipid rich mass which extends from the superior aspect of the field of view within the posterior distal right thigh into the inferior field of view within the right calf. Subtle enhancement is noted around the this mass intercalates into the anterior quadriceps musculature in the region of the dist al femur. Subtle enhancement is present within this region. There is atrophy of the associated muscul ature of the right lower extremity. The right lower extremity vasculature appears intact where visual ized. However, the superficial femoral artery and vein have been displaced posteriorly secondary to m ass effect. IMPRESSION: 1. Large fatty mass of the right lower extremity, the entire extent of which is not visualized on thi s limited field of view but appears to extend from approximately the mid femoral diaphysis to the mid calf region. There is subtle enhancement with the most anterior portion of this mass adjacent to the right femur. Given the size, interval growth, and enhancement features of this mass, findings sugges t liposarcoma. Reviewed by: Kathryn Lozada MD on 05/25/2020 9:11 AM PDT Approved by: Kathryn Lozada MD on 05/25/2020 9:11 AM PDT Station ID: [id number]
== END 2020-05-24 10:11 | disposition home or self-care (01) ==
LOC: DI 10:10
PROVIDERS: ATTEND Physician Assistant Medical
DX: R22.41 Localized swelling, mass and lump, right lower limb (principal)
CPT/HCPCS: 73720; A9585

== ENCOUNTER 2020-09-22 08:00 | Outpatient (CLI) | payer MEDICARE, OTHER ==
[2020-09-22 12:03] LABS: BASOPHILS % (AUTO) 0.4 %; EOSINOPHILS # (AUTO) 0.1 10^3/uL (0.0-0.7); EOSINOPHILS % (AUTO) 1.7 %; HGB - HEMOGLOBIN 12.5 g/dL (12.0-16.0); LYMPHOCYTES # (AUTO) 1.6 10^3/uL (1.5-3.5); LYMPHOCYTES % (AUTO) 35.3 %; MEAN CORPUSCULAR HEMOGLOBIN 31.4 pg (27.0-31.0); MEAN CORPUSCULAR VOLUME 98.2 fL (81.0-99.0); MEAN PLATELET VOLUME 11.3 fL (7.9-10.8); MONOCYTES # (AUTO) 0.4 10^3/uL (0.0-1.0); MONOCYTES % (AUTO) 7.5 %; NEUTROPHILS # (AUTO) 2.6 10^3/uL (1.5-6.6); NEUTROPHILS % (AUTO) 54.9 %; PLT - PLATELET COUNT 227 10^3/uL (130-450); RED BLOOD COUNT 3.98 10^6/uL (4.20-5.40); RED CELL DISTRIBUTION WIDTH 13.2 % (12.0-15.0); WHITE BLOOD COUNT 4.7 x10^3/uL (4.8-10.8)
[2020-09-22 12:30] LABS: ALBUMIN 3.9 g/dL (3.2-5.5); ALBUMIN/GLOBULIN RATIO 1.6 (1.0-2.2); ALKALINE PHOSPHATASE 78 IU/L (42-121); ALT ALANINE AMINOTRANSFERASE 25 IU/L (10-60); AST ASPARTATE AMINOTRANSFERASE 22 IU/L (10-42); BILIRUBIN,TOTAL 0.7 mg/dL (0.2-1.0); BUN - BLOOD UREA NITROGEN 14 mg/dL (6-20); CALCIUM 9.3 mg/dL (8.5-10.3); CARBON DIOXIDE - CO2 26 mmol/L (21-32); CHLORIDE 107 mmol/L (101-111); CHOL/HDL RATIO 4.2 (<4.4); CHOLESTEROL 242 mg/dL; CREATININE 0.7 mg/dL (0.4-1.0); GLUCOSE 94 mg/dL (70-100); HDL CHOLESTEROL 57 mg/dL; LDL CHOLESTEROL,CALCULATED 155 mg/dL; LDL/HDL RATIO 2.7 (<4.4); TOTAL PROTEIN 6.3 g/dL (6.7-8.2); VLDL CHOLESTEROL 30 mg/dL
== END 2020-09-22 23:59 | disposition home or self-care (01) ==
LOC: LAB.WCP 08:00
PROVIDERS: ATTEND Physician Assistant Medical
DX: E78.5 Hyperlipidemia, unspecified (principal); K21.9 Gastro-esophageal reflux disease without esophagitis
CPT/HCPCS: 36415; 80053; 80061; 83721; 85025

== ENCOUNTER 2021-08-05 08:00 | Outpatient (CLI) | payer MEDICARE, OTHER ==
[2021-08-05 17:56] LABS: BASOPHILS % (AUTO) 0.7 %; EOSINOPHILS # (AUTO) 0.1 10^3/uL (0.0-0.7); EOSINOPHILS % (AUTO) 0.8 %; HCT - HEMATOCRIT 39.8 % (37.0-47.0); HGB - HEMOGLOBIN 12.7 g/dL (12.0-16.0); LYMPHOCYTES # (AUTO) 1.8 10^3/uL (1.5-3.5); LYMPHOCYTES % (AUTO) 30.8 %; MEAN CORPUSCULAR HEMOGLOBIN 31.1 pg (27.0-31.0); MEAN CORPUSCULAR HGB CONC 31.9 g/dL (32.0-36.0); MEAN CORPUSCULAR VOLUME 97.3 fL (81.0-99.0); MEAN PLATELET VOLUME 11.5 fL (7.9-10.8); MONOCYTES # (AUTO) 0.5 10^3/uL (0.0-1.0); MONOCYTES % (AUTO) 7.7 %; NEUTROPHILS # (AUTO) 3.5 10^3/uL (1.5-6.6); NEUTROPHILS % (AUTO) 59.7 %; PLT - PLATELET COUNT 313 10^3/uL (130-450); RED BLOOD COUNT 4.09 10^6/uL (4.20-5.40); RED CELL DISTRIBUTION WIDTH 13.2 % (12.0-15.0); WHITE BLOOD COUNT 5.9 x10^3/uL (4.8-10.8)
[2021-08-05 18:03] LABS: ALBUMIN 3.9 g/dL (3.2-5.5); ALBUMIN/GLOBULIN RATIO 1.1 (1.0-2.2); BILIRUBIN,TOTAL 0.6 mg/dL (0.2-1.0); CALCIUM 9.3 mg/dL (8.5-10.3); CREATININE 0.9 mg/dL (0.4-1.0); POTASSIUM 3.8 mmol/L (3.5-5.0); TOTAL PROTEIN 7.4 g/dL (6.7-8.2)
== END 2021-08-05 23:59 | disposition home or self-care (01) ==
LOC: LAB.WCP 08:00
PROVIDERS: ATTEND Physician Assistant Medical
DX: N39.0 Urinary tract infection, site not specified (principal)
CPT/HCPCS: 36415; 80053; 85025; 87040

== ENCOUNTER 2021-08-19 15:14 | Outpatient (CLI) | payer MEDICARE, OTHER ==
--- NOTE | 2021-08-19 17:24 | Ultrasound Report ---
PROCEDURE: Retroperitoneal INDICATIONS: RENALMASS TECHNIQUE: Real-time scanning was performed of the retroperitoneal organs, with image documentation. COMPARISON: CT angiogram of chest dated 05/15/2020. Abdominal ultrasound dated 02/02/2019. CT of abdom en and pelvis dated 04/22/2020 and 07/16/2019. FINDINGS: Kidneys: Kidneys are normal in size. Right kidney measures 11.9 cm long; left kidney measures 11.1 cm long. Right renal cortical thickness is 1.4 cm; left renal cortical thickness is 1.3 cm. No vee d masses, hydronephrosis, or nephrolithiasis. Right extrarenal pelvis is seen measures 1.4 cm in siz e. Echogenic focus is noted in mid pole of left kidney and measures 8 mm in size. 2.3 x 1.9 cm slight ly echogenic mass is again seen in upper pole of left kidney and was seen on previous CT study to rep resent a fat containing lesion previously measures 3 cm in size. Prevoid bladder volume measures 551.1 cc. Postvoid residual is 16.3 cc. No gross bladder wall abnorma lity is seen. Bilateral ureteral jets are noted. IMPRESSION: 1. Interval slight decrease in size of patient's known fat-containing mass in left kidney upper pole now measures 2.3 x 1.9 cm in size. 8 mm echogenic focus is seen in mid pole of left kidney which coul d represent a small angiomyolipoma. 2. Right peripelvic renal cyst as above. 3. No new solid-appearing renal lesion. No hydronephrosis. 4. No gross abnormality is seen in urinary bladder. Reviewed by: Alonzo Molina MD on 08/19/2021 5:23 PM PST Approved by: Alonzo Molina MD on 08/19/2021 5:23 PM PST Station ID: [id number]
== END 2021-08-19 15:15 | disposition home or self-care (01) ==
LOC: DI 15:14
PROVIDERS: ATTEND Physician Assistant Medical
DX: N28.89 Other specified disorders of kidney and ureter (principal); N28.1 Cyst of kidney, acquired

== ENCOUNTER 2021-09-09 08:00 | Outpatient (CLI) | payer MEDICARE, OTHER ==
[2021-09-09 12:30] LABS: ALBUMIN 3.8 g/dL (3.2-5.5); ALBUMIN/GLOBULIN RATIO 1.3 (1.0-2.2); ALKALINE PHOSPHATASE 71 IU/L (42-121); ALT ALANINE AMINOTRANSFERASE 16 IU/L (10-60); AST ASPARTATE AMINOTRANSFERASE 18 IU/L (10-42); BILIRUBIN,TOTAL 0.5 mg/dL (0.2-1.0); BUN - BLOOD UREA NITROGEN 20 mg/dL (6-20); CARBON DIOXIDE - CO2 26 mmol/L (21-32); CHLORIDE 105 mmol/L (101-111); CHOL/HDL RATIO 4.1 (<4.4); CHOLESTEROL 231 mg/dL; GFR - MDRD 54 (>89); GLUCOSE 92 mg/dL (70-100); HDL CHOLESTEROL 56 mg/dL; LDL CHOLESTEROL,CALCULATED 149 mg/dL; LDL/HDL RATIO 2.7 (<4.4); POTASSIUM 4.3 mmol/L (3.5-5.0); SODIUM 138 mmol/L (135-145); TOTAL PROTEIN 6.7 g/dL (6.7-8.2); TRIGLYCERIDES 132 mg/dL; VLDL CHOLESTEROL 26 mg/dL
[2021-09-09 12:32] LABS: BASOPHILS % (AUTO) 0.9 %; EOSINOPHILS # (AUTO) 0.1 10^3/uL (0.0-0.7); EOSINOPHILS % (AUTO) 2.3 %; HCT - HEMATOCRIT 39.3 % (37.0-47.0); HGB - HEMOGLOBIN 12.7 g/dL (12.0-16.0); LYMPHOCYTES % (AUTO) 44.8 %; MEAN CORPUSCULAR HEMOGLOBIN 31.4 pg (27.0-31.0); MEAN CORPUSCULAR HGB CONC 32.3 g/dL (32.0-36.0); MEAN CORPUSCULAR VOLUME 97.3 fL (81.0-99.0); MEAN PLATELET VOLUME 11.3 fL (7.9-10.8); MONOCYTES # (AUTO) 0.4 10^3/uL (0.0-1.0); MONOCYTES % (AUTO) 9.7 %; NEUTROPHILS # (AUTO) 1.8 10^3/uL (1.5-6.6); NEUTROPHILS % (AUTO) 42.1 %; PLT - PLATELET COUNT 241 10^3/uL (130-450); RED BLOOD COUNT 4.04 10^6/uL (4.20-5.40); WHITE BLOOD COUNT 4.4 x10^3/uL (4.8-10.8)
== END 2021-09-09 23:59 | disposition home or self-care (01) ==
LOC: LAB.WCP 08:00
PROVIDERS: ATTEND Physician Assistant Medical
DX: E78.5 Hyperlipidemia, unspecified (principal); K21.9 Gastro-esophageal reflux disease without esophagitis
CPT/HCPCS: 36415; 80053; 80061; 83721; 85025

== ENCOUNTER 2022-12-01 08:07 | Outpatient (CLI) | payer MEDICARE, OTHER ==
[2022-12-01 12:39] LABS: ALBUMIN 3.7 g/dL (3.2-5.5); ALBUMIN/GLOBULIN RATIO 1.3 (1.0-2.2); ALKALINE PHOSPHATASE 71 IU/L (42-121); ALT ALANINE AMINOTRANSFERASE 16 IU/L (10-60); AST ASPARTATE AMINOTRANSFERASE 16 IU/L (10-42); BILIRUBIN,TOTAL 0.7 mg/dL (0.2-1.0); BUN - BLOOD UREA NITROGEN 13 mg/dL (6-20); CALCIUM 8.5 mg/dL (8.5-10.3); CARBON DIOXIDE - CO2 27 mmol/L (21-32); CHLORIDE 108 mmol/L (101-111); CHOL/HDL RATIO 4.1 (<4.4); CHOLESTEROL 215 mg/dL; CREATININE 0.9 mg/dL (0.4-1.0); GFR - MDRD 61 (>89); GLUCOSE 91 mg/dL (70-100); HDL CHOLESTEROL 52 mg/dL; LDL CHOLESTEROL,CALCULATED 134 mg/dL; LDL/HDL RATIO 2.6 (<4.4); POTASSIUM 3.9 mmol/L (3.5-5.0); SODIUM 141 mmol/L (135-145); TOTAL PROTEIN 6.5 g/dL (6.7-8.2); TRIGLYCERIDES 147 mg/dL; VLDL CHOLESTEROL 29 mg/dL
== END 2022-12-01 08:08 | disposition home or self-care (01) ==
LOC: LAB.N 08:07
PROVIDERS: ATTEND Physician Assistant Medical
DX: E78.5 Hyperlipidemia, unspecified (principal)
CPT/HCPCS: 36415; 80053; 80061; 83721

== ENCOUNTER 2023-01-03 14:31 | Outpatient (CLI) | payer MEDICARE, OTHER ==
--- NOTE | 2023-01-03 15:14 | XRAY Report ---
PROCEDURE: Chest 2 View X-Ray INDICATIONS: PULMONARY EMBOLISM TECHNIQUE: 2 views of the chest were acquired. COMPARISON: CT of the chest dated 05/15/2020. FINDINGS: Surgical changes and devices: None. Lungs and pleura: No pleural effusions or pneumothorax. Lungs are clear. Mediastinum: Mediastinal contours appear normal. Heart size is normal. Bones and chest wall: No suspicious bony lesions. Overlying soft tissues appear unremarkable. Luh gical clips are present in the right breast. Elevation of the left hemidiaphragm is unchanged. IMPRESSION: No acute cardiopulmonary process. Reviewed by: Win Murry on 01/03/2023 3:13 PM PDT Approved by: Win Murry on 01/03/2023 3:13 PM PDT Station ID: [id number]
--- NOTE | 2023-01-03 17:05 | Ultrasound Report ---
PROCEDURE: Retroperitoneal INDICATIONS: RENAL MASS TECHNIQUE: Real-time scanning was performed of the retroperitoneal organs, with image documentation. COMPARISON: 08/19/2021. FINDINGS: Kidneys: Kidneys are normal in size. Right kidney measures 10.2 cm long; left kidney measures 10.9 cm long. Right renal cortical thickness is 0.8 cm; left renal cortical thickness is 0.8 cm. 2.5 x 1. 7 x 1.9 cm anechoic area in right peripelvic region is seen. No internal vascularity is noted. 2.3 x 2.9 x 2.5 cm isoechoic structure in upper pole left kidney is seen measures 2.3 x 2.9 x 2.5 cm in siz e. 1.1 x 0.8 x 1.1 cm echogenic focus is noted in mid pole left kidney. No hydronephrosis. Bladder: Pre-void bladder volume is 255.3 mL. Post-void residual is 10 mL. Pre-void images demonst rate no intraluminal masses or stones. On pre-void images, bilateral ureteral jets are noted with co salena Doppler interrogation. (Of note, ureteral jets may not be detectable in up to 25% of cases due t o insufficient differences in specific gravity between ureteral and bladder urine). Miscellaneous: No free abdominal fluid. IMPRESSION: 1. 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 2. Previously described 2.3 x 1.9 cm isoechoic solid mass in upper pole of left kidney is slightly in creased in size now measures 2.3 x 2.9 x 2.5 cm in size. Continued sonographic follow-up is recommend ed. 3. Stable appearing right peripelvic renal cyst. 4. No new solid renal lesion. No hydronephrosis. Normal-appearing urinary bladder. Reviewed by: Alonzo Molina MD on 01/03/2023 5:04 PM PDT Approved by: Alonzo Molina MD on 01/03/2023 5:04 PM PDT Station ID: [id number]
== END 2023-01-03 14:32 | disposition home or self-care (01) ==
LOC: DI 14:31
PROVIDERS: ATTEND Physician Assistant Medical
DX: I26.99 Other pulmonary embolism without acute cor pulmonale (principal); N28.89 Other specified disorders of kidney and ureter; N28.1 Cyst of kidney, acquired

== ENCOUNTER 2023-01-20 13:46 | Outpatient (CLI) | payer MEDICARE, OTHER ==
[2023-01-20] MEDS ORDERED: iohexoL-300 100 ML VIAL ONE (14:56)
[2023-01-20] MEDS ORDERED: iohexoL-300 100 ML VIAL IVP ONE (15:02)
--- NOTE | 2023-01-20 17:03 | CT Report ---
PROCEDURE: ABDOMEN W/WO INDICATIONS: RENAL MASS CONTRAST: 140ml Omni 300 TECHNIQUE: [address] scan of the kidneys was performed. Non-contrast and multiphasic contrast images were recor ded and evaluated at appropriate window settings. Reformats: coronal and sagittal. For radiation dose reduction, the following was used: automated exposure control, adjustment of mA and/or kV according to patient size. COMPARISON: None. FINDINGS: Image quality: Excellent. Genitourinary: There is a macroscopic fat-containing mass along the superior pole of the right kidne y measuring approximately 3.4 x 3.3 cm. The additional 1.1 cm lesion in the midpole of the left kidne y is not clearly identified on this exam. Additional bilateral subcentimeter hypoattenuating lesions, too small to characterize by CT. OTHER: Lung bases and heart: Elevated left hemidiaphragm. Liver: No solid mass. Gallbladder and biliary tree: Surgically absent. No biliary dilation, accounting for post-cholecystec denilson state. Spleen: No splenomegaly. Pancreas: No pancreatic ductal dilation. Adrenals: No adrenal nodule. Bowel and peritoneum: No bowel distension. No pathologic free fluid. Diverticulosis without evidence of diverticulitis. Lymph nodes: No central or retroperitoneal adenopathy. Vessels: No infrarenal aortic aneurysm. Bones: No aggressive osseous abnormality. Other: No significant ventral hernia. 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 Reviewed by: Lex Lindquist on 01/20/2023 5:02 PM PDT Approved by: Lex Lindquist on 01/20/2023 5:02 PM PDT Station ID: [id number]
== END 2023-01-20 13:47 | disposition home or self-care (01) ==
LOC: LAB 13:46
PROVIDERS: ATTEND Physician Assistant Medical
DX: N28.89 Other specified disorders of kidney and ureter (principal)
CPT/HCPCS: 36415; 74170; 82565; Q9967; 82550